=== PATIENT | male | born 2000 | race Caucasian/White ===

== ENCOUNTER 2018-01-02 22:43 | Emergency (ER) | payer OTHER ==
[~2018-01-02] VITALS: Ht 172.7 cm; Wt 64.0 kg
[~2018-01-02 22:43] MED LIST: ALBU6.7H9
[2018-01-03] MEDS ORDERED: IBUPROFEN 400MG TABLET PO ONE (07:00)
[2018-01-03 07:04] VITALS: BP 109/70
== END 2018-01-03 09:57 | disposition home or self-care (01) ==
LOC: ER 01-03 09:40
DX: H60.92 Unspecified otitis externa, left ear (principal); J45.909 Unspecified asthma, uncomplicated; Z79.899 Other long term (current) drug therapy
CPT/HCPCS: 99283; Z7610; A4315

== ENCOUNTER 2023-04-25 13:22 | Emergency (ER) | payer BC, OTHER ==
[~2023-04-25] VITALS: Ht 175.3 cm; Wt 82.0 kg
[~2023-04-25 13:22] MED LIST changes: +ALBU6.7H3; -ALBU6.7H9
[2023-04-25 13:56] VITALS: TEMP 98.8; O2SAT 98
[2023-04-25 17:00] VITALS: BP 112/68; PULSE 68; RESP 16
[2023-04-25] MEDS ORDERED: IBUPROFEN 600MG TABLET PO ONE (17:00)
[2023-04-25] MEDS ORDERED: IBUP-2029 MT (17:40)
== END 2023-04-25 18:04 | disposition home or self-care (01) ==
LOC: ER 13:22
DX: M79.10 Myalgia, unspecified site (principal); J45.909 Unspecified asthma, uncomplicated; M54.50 Low back pain, unspecified; M25.512 Pain in left shoulder; V49.49XA Driver injured in collision with other motor vehicles in traffic accident, initial encounter; Y93.89 Activity, other specified; Y92.89 Other specified places as the place of occurrence of the external cause; Y99.8 Other external cause status
CPT/HCPCS: 99282